=== PATIENT | female | born 1950 | race Caucasian/White ===

== ENCOUNTER → 2017-06-07 | Outpatient (CLI) | payer MEDICARE, MEDICAID ==
[~2017-06-07] MED LIST: ASPI-241 PO; ATEN100T88 PO; ATOR80TA PO; CLOP75TA PO; FURO40TA4 PO; ISM30TCR PO; KCL20TCR PO; LISI20TA PO; LOVA40TA2 PO; NITR4.1S2 PO; NITRO MT; NTR.6TD TD; TRIAMT/HCTZ PO; VERA120T6 PO
[2017-06-07 09:04] LABS: BILIRUBIN,TOTAL 0.9 MG/DL (0.1-1.0); CALCIUM 9.7 MG/DL (8.5-10.1); CREATININE SERUM 1.02 MG/DL (0.60-1.30); POTASSIUM 3.7 MMOL/L (3.6-5.0); TOTAL PROTEIN 7.3 GM/DL (6.4-8.2)
== END ==
LOC: LAB 08:28
PROVIDERS: ATTEND Internal Medicine Cardiovascular Disease
DX: E78.2 Mixed hyperlipidemia (principal); R00.2 Palpitations; R07.89 Other chest pain; R06.02 Shortness of breath
CPT/HCPCS: 36415; 80053; 80061

== ENCOUNTER → 2017-06-20 | Outpatient (CLI) | payer MEDICARE, MEDICAID | LOC: CARD 11:25 | PROVIDERS: ATTEND Internal Medicine Cardiovascular Disease | DX: R07.89 Other chest pain (principal); E78.2 Mixed hyperlipidemia; R00.2 Palpitations; R06.02 Shortness of breath | CPT/HCPCS: 93306 ==

== ENCOUNTER → 2017-06-27 | Outpatient (CLI) | payer MEDICARE, MEDICAID ==
[~2017-06-27] VITALS: Ht 157.5 cm; Wt 85.3 kg
[~2017-06-27] MED LIST changes: +CATHETER FLUSH 10 ML SYR IV SCH
--- NOTE | 2017-06-27 14:20 | STRESS TEST ---
DATE OF SERVICE: 06/27/2017 REFERRING PHYSICIAN: Dr. Cerrato. Baseline heart rate is 84, baseline blood pressure 127/86. Baseline EKG is sinus rhythm with no ischemic changes. In summary, the patient was injected with 10.48 mCi of technetium-99 Myoview and the resting images were obtained. Then, the patient started exercising with a baseline heart rate, blood pressure and EKG mentioned above. The patient was able to exercise for 3 minutes on standard Geraldo protocol. With peak exercise level, EKG was showing minimal nondiagnostic changes. Blood pressure was 130/90. During recovery, heart rate and blood pressure returned to baseline. EKG returned to baseline. The resting and stress images were reviewed and compared in the short axis, horizontal long axis, and vertical long axis views. Review of the images showed good radiotracer uptake with no significant ischemia or infarction. SSS is 3, SDS 3, TID value 1.0. On the gated images, the left ventricle appeared to be normal size with normal contractility. Calculated ejection fraction is 74%. CONCLUSION: 1. Poor exercise tolerance, a total of 3 minutes on standard Geraldo protocol, total of 4.6 METS achieving 89% of maximum expected heart rate. 2. Mild hypertensive response to exercise returned to baseline during recovery. 3. Minimal nondiagnostic EKG changes with exercise returned to baseline during recovery. 4. No ischemia or infarction on SPECT images. 5. Normal left ventricular size with normal contractility. Calculated ejection fraction is 74%. Job ID: [id number] DocumentID: [id number] Dictated Date: 06/27/2017 14:00:58 Telecasting Engineer Date: 06/27/2017 14:19:21 Dictated By: FATOU HURST MD
== END ==
LOC: CARD 06:42
PROVIDERS: ATTEND Internal Medicine Cardiovascular Disease
DX: R07.89 Other chest pain (principal); E78.2 Mixed hyperlipidemia; R00.2 Palpitations; R06.02 Shortness of breath
CPT/HCPCS: 78452; 93017

== ENCOUNTER → 2017-08-08 | Outpatient (CLI) | payer MEDICARE, MEDICAID ==
[~2017-08-08] MED LIST changes: -CATHETER FLUSH 10 ML SYR IV SCH; +RT-ALBUTEROL SULF 2.5 MG/3 ML PRE-MIX VIAL INH ONE
--- NOTE | 2017-08-08 11:30 | Diagnostic Imaging Report ---
INDICATION: Increasing shortness of breath. Time of exam 11:06 AM Comparison is made with prior chest from 02/11/2014. The heart size is normal. Right hemidiaphragm is chronically elevated. No infiltrates are detected. Pulmonary vascularity is normal. No effusion or pneumothorax is seen. IMPRESSION: No acute cardiopulmonary process is detected. Dictated by: Dictated on workstation # [id number]
== END ==
LOC: RT 10:35
PROVIDERS: ATTEND Internal Medicine
DX: R06.00 Dyspnea, unspecified (principal)
CPT/HCPCS: 71046; 94060; 94726; 94729

== ENCOUNTER → 2017-09-14 | Outpatient (CLI) | payer MEDICARE, MEDICAID ==
[~2017-09-14] MED LIST changes: -RT-ALBUTEROL SULF 2.5 MG/3 ML PRE-MIX VIAL INH ONE
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
== END ==
LOC: RAD 09:17
PROVIDERS: ATTEND Physician Assistant
DX: M47.816 Spondylosis without myelopathy or radiculopathy, lumbar region (principal); V89.2XXD Person injured in unspecified motor-vehicle accident, traffic, subsequent encounter
CPT/HCPCS: 72148

== ENCOUNTER → 2017-10-17 | Outpatient (CLI) | payer MEDICARE, MEDICAID ==
[2017-10-17 07:55] LABS: ALANINE AMINOTRANSFERASE 11 U/L (0-55); ALBUMIN 3.8 GM/DL (3.2-4.5); ALKALINE PHOSPHATASE 89 U/L (40-136); BILIRUBIN,TOTAL 0.9 MG/DL (0.1-1.0); BUN/CREATININE RATIO 18; CALCIUM 9.5 MG/DL (8.5-10.1); CARBON DIOXIDE 19 MMOL/L (21-32); CHLORIDE 112 MMOL/L (98-107); CHOLESTEROL 192 MG/DL (< 200); CREATININE SERUM 0.88 MG/DL (0.60-1.30); GFR ESTIMATED > 60; GLUCOSE 100 MG/DL (70-105); HDL CHOLESTEROL 55 MG/DL (40-60); POTASSIUM 3.9 MMOL/L (3.6-5.0); SODIUM 142 MMOL/L (135-145); TOTAL PROTEIN 6.6 GM/DL (6.4-8.2); TRIGLYCERIDES 118 MG/DL (<150); VLDL CHOLESTEROL 24 MG/DL (5-40)
== END ==
LOC: LAB 07:20
PROVIDERS: ATTEND Physician Assistant
DX: I25.10 Atherosclerotic heart disease of native coronary artery without angina pectoris (principal); R07.9 Chest pain, unspecified; R00.2 Palpitations
CPT/HCPCS: 36415; 80053; 80061

== ENCOUNTER → 2017-10-22 | Outpatient (CLI) | payer MEDICARE, MEDICAID ==
--- NOTE | 2017-10-22 09:48 | Diagnostic Imaging Report ---
PROCEDURE: CT sinuses without contrast TECHNIQUE: Multiple contiguous axial images were obtained through the sinuses without the use of intravenous contrast. Coronal and sagittal reformations were then performed. INDICATION: Recurrent sinusitis. COMPARISON: None. FINDINGS: Mild mucosal thickening in the floor of the maxillary sinuses. The paranasal sinuses are otherwise clear. The ostiomeatal units and frontal recesses are patent. Moderate rightward bowing of the nasal septum. No large melva bullosa. The mastoids and middle ears are clear. Moderate degenerative changes in the temporomandibular joints. No large periapical lucencies about the maxillary dentition. IMPRESSION: Mild mucosal thickening in the floor of the maxillary sinuses. The paranasal sinuses are otherwise clear. No air-fluid levels. Dictated by: Dictated on workstation # [id number]
== END ==
LOC: RAD 09:08
PROVIDERS: ATTEND Internal Medicine
DX: J32.9 Chronic sinusitis, unspecified (principal); J34.89 Other specified disorders of nose and nasal sinuses
CPT/HCPCS: 70486

== ENCOUNTER 2017-12-28 13:39 | Emergency (ER) | payer MEDICARE, MEDICAID ==
[~2017-12-28] VITALS: Ht 157.5 cm; Wt 85.3 kg
--- OUTSIDE RECORDS SUMMARY | 2017-12-28 13:43 | XMS REPORT ---
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 Unknown Non Drug Allergy May, Unknown SOCIAL HISTORY No smoking Hx information available PLAN OF CARE VITAL SIGNS Blood pressure systolic 137 mmHg 2016-05-31 Blood pressure diastolic 97 mmHg 2016-05-31 MEDICATIONS Medication Instructions Dosage Frequency Start Date End Date Duration Status Ranexa 500 MG Orally Twice a day 1 tablet 12h Active Lasix 40 MG Orally Once a day 1 tablet 24h Active Potassium 1 tab Active Aspirin 325 MG Orally Once a day 1 tablet 24h Active Lovastatin 40 MG Orally Once a day 1 tablet with a meal 24h Active Atenolol 100 MG Orally Once a day 1 tablet 24h Active RESULTS No Results PROCEDURES Procedure Date Ordered Related Diagnosis Body Site LTD ORAL EVALUATION - PROBLEM FOCUS May 31, 2016 INTRAORL-PERIAPICAL 1 FILM [id number] May 31, 2016 IMMUNIZATIONS No Known Immunizations
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
--- NOTE | 2017-12-28 14:23 | ED Upper Extremity ---
General Chief Complaint: Trauma-Non Activation Stated Complaint: FALL/RT SHOULDER PAIN Nursing Triage Note: PT STATES SHE WAS WALKING AT [facility] AND FELL, CC OF RT UPPER ARM AND SHOULDER PAIN WITH NUMBNESS OF FINGERS. PT DOES NOT KNOW WHY SHE FELL, DENIES PASSING OUT AND DOES NOT KNOW OF ANYTHING ON THE FLOOR. Nursing Sepsis Screen: No Definite Risk Source: patient, family Exam Limitations: no limitations History of Present Illness Date Seen by Provider: Dec 28, 2017 Time Seen by Provider: 14:20 Initial Comments Patient is a 67-year-old female who presents to the emergency room after a fall at [facility] today onto her right upper arm. She complains of right shoulder and right humerus with numbness and tingling that radiates to her fingers. She denies passing out, denies hitting her head, denies loss of consciousness, denies neck pain. She thinks she got her feet caught up and tripped. Location Injury Occurred: [facility] Onset: just prior to arrival Pain/Injury Location: right shoulder, right arm Method of Injury: fell Modifying Factors: Improves With Movement Allergies and Home Medications Allergies Coded Allergies: Erythromycin Base (Verified Allergy, Unknown, 12/29/05) Meperidine (Verified Allergy, Unknown, 12/29/05) Home Medications Aspirin 325 Mg Tablet.dr, 325 MG PO DAILY, (Reported) Atenolol 100 Mg Tablet, 100 MG PO DAILY, (Reported) Furosemide 40 Mg Tablet, 40 MG PO DAILY, (Reported) Isosorbide Mononitrate 30 Mg Tab, 30 MG PO DAILY Prescribed by: DARNELL CERRATO on 02/12/14 0851 Lovastatin 40 Mg Tablet, 1 EACH PO DAILY WITH SUPPER Prescribed by: DARNELL CERRATO on 02/12/14 0851 Nitroglycerin 4.1 Gm [place], 1 SPRAY PO Q15M PRN for CHEST PAIN, (Reported) Potassium Chloride 20 Meq Tab, 20 MEQ PO DAILY, (Reported) Patient Home Medication List Home Medication List Reviewed: Yes Constitutional: see HPI; No chills, No fever Musculoskeletal: see HPI, joint pain (right shoulder and right upper arm pain) All Other Systems Reviewed Negative Unless Noted: Yes Past Tnyewps-Gclnje-Mmgond Hx Past Med/Social Hx: Reviewed Nursing Past Med/Soc Hx Patient Social History Alcohol Use: Denies Use Recreational Drug Use: No Smoking Status: Never a Smoker Recent Foreign Travel: No Contact w/Someone Who Travel: No Recent Infectious Disease Expo: No Recent Hopitalizations: No Immunizations Up To Date Tetanus Booster (TDap): More than 5yrs Seasonal Allergies Seasonal Allergies: Yes Past Medical History Surgeries: Yes Appendectomy, Section, Gallbladder, Tonsillectomy Respiratory: No Cardiac: Yes (STENTS IN HEART) Coronary Artery Disease, Hypertension Neurological: No Reproductive Disorders: No Genitourinary: No Gastrointestinal: No Musculoskeletal: No Endocrine: No Loss of Vision: Denies Hearing Impairment: Denies Cancer: No Psychosocial: No Integumentary: No Blood Disorders: No Adverse Reaction/Blood Tranf: No Family Medical History Reviewed Nursing Family Hx Completed stroke 19 MOTHER G8 BROTHER Diabetes mellitus 19 MOTHER Hypertension 19 MOTHER Myocardial infarction 19 FATHER 19 MOTHER G8 BROTHER Physical Exam Vital Signs Vital Signs - First Documented 12/28/17 13:58 Temp 97.7 Pulse 80 Resp 20 B/P (MAP) 142/80 (100) Pulse Ox 96 O2 Delivery Room Air Capillary Refill : Less Than 3 Seconds Height, Weight, BMI Height: 5'2.00" Weight: 188lbs. 0.0oz. 85.250636jq; 34.4 BMI Method:Stated General Appearance: WD/WN, no apparent distress Neck: non-tender, full range of motion, supple, normal inspection Cardiovascular: regular rate, rhythm, no edema, no gallop, no JVD, no murmur Respiratory: chest non-tender, lungs clear, normal breath sounds, no respiratory distress, no accessory muscle use Shoulder: normal inspection, no evidence of injury, normal ROM; No ecchymosis; limited ROM Elbow/Forearm: normal inspection, non-tender, no evidence of injury (no abrasion, no ecchymosis on the right arm. ), normal ROM Neurologic/Tendon: normal sensation, normal motor functions, normal tendon functions, responds to pain Neurologic/Psychiatric: alert, normal mood/affect, oriented x 3 Progress/Results/Core Measures Results/Orders My Orders Vital Signs/I&O Blood Pressure Mean: 100 Progress Progress Note : Progress Note I have seen and evaluated the patient. I have informed her of normal imaging studies. She has been provided a sling for comfort. She agrees with plans of discharge, plan of care, close follow up with PCP, and return precautions. Diagnostic Imaging Diagonstic Imaging: Xray Plain Films/CT/US/NM/MRI: forearm Comments [facility] [id number] PT STATUS: REG ER : 1950 PHYSICIAN: BRENDA DYER ADMIT DATE: 12/28/17/ER Signed Date of Exam: 12/28/17 HUMERUS, RIGHT, 2 VIEWS INDICATION: Fall with right arm pain. Time of exam 2:48 PM Alignment at the shoulder and elbow appears normal. The humerus is intact. No fractures are seen. IMPRESSION: No acute bony abnormality is detected. Dictated by: Dictated on workstation # [id number] Dict: 12/28/17 1449 Trans: 12/28/171511 Interpreted by: VICTOR MANUEL ESQUIVEL MD Electronically signed by: VICTOR MANUEL ESQUIVEL MD 12/28/171511 [facility] [id number] PT STATUS: REG ER : 1950 PHYSICIAN: BRENDA DYER ADMIT DATE: 12/28/17/ER Signed Date of Exam: 12/28/17 SHOULDER, RIGHT, 3 VIEWS INDICATION: Fall with right arm pain. Time of exam 2:51 PM 3 views of the right shoulder were obtained. Glenohumeral and acromioclavicular alignment are normal. Acromiohumeral space is normal. No fracture or dislocation is seen. IMPRESSION: No acute abnormality is detected. Dictated by: Dictated on workstation # [id number] Dict: 12/28/17 1448 Trans: 12/28/171510 Interpreted by: VICTOR MANUEL ESQUIVEL MD Electronically signed by: VICTOR MANUEL ESQUIVEL MD 12/28/171510 Reviewed: Reviewed by Me Departure Impression Primary Impression: Fall Qualified Codes: W19.XXXA - Unspecified fall, initial encounter Additional Impression: Contusion, shoulder /upper arm Disposition: 01 HOME, SELF-CARE Condition: Stable/Unchanged Departure-Patient Inst. Decision time for Depature: 14:58 Referrals: DARNELL CERRATO DO (PCP/Family) Primary Care Physician Add. Discharge Instructions: Keep your appointment with Dr. Cerrato as scheduled on Sunday12/31/17. You may use ibuprofen and Tylenol as directed by the bottle. Ice to sore areas at 20 minute intervals. Return back to the emergency room for any worsening symptoms or concerns as needed. Wear the sling as needed for comfort. All discharge instructions reviewed with patient and/or family. Voiced understanding. BRENDA DYER Dec 28, 2017 14:23
--- NOTE | 2017-12-28 14:51 | Diagnostic Imaging Report ---
INDICATION: Fall with right arm pain. Time of exam 2:51 PM 3 views of the right shoulder were obtained. Glenohumeral and acromioclavicular alignment are normal. Acromiohumeral space is normal. No fracture or dislocation is seen. IMPRESSION: No acute abnormality is detected. Dictated by: Dictated on workstation # [id number]
--- NOTE | 2017-12-28 14:52 | Diagnostic Imaging Report ---
INDICATION: Fall with right arm pain. Time of exam 2:48 PM Alignment at the shoulder and elbow appears normal. The humerus is intact. No fractures are seen. IMPRESSION: No acute bony abnormality is detected. Dictated by: Dictated on workstation # [id number]
[2017-12-28 15:15] VITALS: BP 142/80
== END 2017-12-28 15:15 | disposition home or self-care (01) ==
LOC: EDUNIT# 13:39 → ER 13:40
DX: S40.011A Contusion of right shoulder, initial encounter (principal); I25.10 Atherosclerotic heart disease of native coronary artery without angina pectoris; I10 Essential (primary) hypertension; Z82.49 Family history of ischemic heart disease and other diseases of the circulatory system; Z95.5 Presence of coronary angioplasty implant and graft; Z88.0 Allergy status to penicillin; Z88.8 Allergy status to other drugs, medicaments and biological substances; Z79.82 Long term (current) use of aspirin; Z90.89 Acquired absence of other organs; Z87.59 Personal history of other complications of pregnancy, childbirth and the puerperium; W18.30XA Fall on same level, unspecified, initial encounter; Y92.59 Other trade areas as the place of occurrence of the external cause
CPT/HCPCS: 73030; 73060

== ENCOUNTER → 2018-01-03 | Outpatient (CLI) | payer MEDICARE, MEDICAID ==
--- NOTE | 2018-01-03 09:56 | Diagnostic Imaging Report ---
EXAMINATION: Magnetic resonance imaging of the right shoulder without contrast. DATE: January 03, 2018. COMPARISON: Right shoulder radiographs December 28, 2017. INDICATION: 67-year-old female, history of fall. Right shoulder pain. TECHNIQUE: Magnetic Resonance Imaging sequences were performed of the shoulder without contrast. FINDINGS: There are motion limitations of the exam. ROTATOR CUFF, LIGAMENTS, TENDONS, AND MUSCLES: There is a 13 mm wide full-thickness or very near full-thickness tear of the supraspinatus tendon with the tear measuring 10 mm in medial to lateral dimension as measured on coronal T2 fat saturation sequence image 10. There is tendinopathy of the remaining portions of supraspinatus. There is infraspinatus tendinopathy. The teres minor tendon is intact. There is subscapularis tendinopathy with probable interstitial split tear of the subscapularis tendon. There is normal rotator cuff muscle bulk and signal. LONG HEAD OF BICEPS: The long head of biceps tendon is not present within its intra-articular segment or identified within the bicipital groove. The long head of biceps tendon is likely torn and retracted below the level of the bicipital groove. GLENOHUMERAL JOINT: The humeral head is well positioned relative to the glenoid. The labrum is grossly intact. There is no identified paralabral cyst. The articular cartilage is grossly intact. There is a trace to small glenohumeral joint effusion. The inferior glenohumeral ligament complex is not well visualized with abnormal soft tissue edema subjacent to the axillary pouch. There is significant motion limitation for evaluation at this location; however, this does question the integrity of the inferior glenohumeral ligament complex. ACROMIOCLAVICULAR JOINT: The acromioclavicular joint is normally aligned. The coracoclavicular and coracoacromial ligaments are intact. There are mild acromioclavicular degenerative changes. The distal clavicle is mildly bulbous and projects approximately 3 mm below the joint margin. BONE: There is no os acromiale. There is mild degenerative related edema subjacent to the acromioclavicular joint. There is no large subcortical cyst within the superior humeral head underlying the site of the supraspinatus tendon tear. There is low level underlying edema like signal including at the bursal sided tendon attachment of subscapularis. There is no acute fracture. There is no evidence of osteonecrosis. BURSAE AND SOFT TISSUES: There is a small amount of fluid within the subacromial subdeltoid bursa which may relate to the rotator cuff tendon tear, bursitis, and/or recent injection. There is prominent soft tissue edema medial to the glenohumeral joint. IMPRESSION: 1. 13 mm wide full-thickness or near full-thickness tear of the supraspinatus tendon with the tear measuring 10 mm in medial to lateral dimension. Supraspinatus and infraspinatus tendinopathy. Subscapularis tendinopathy with probable interstitial split tear of the subscapularis tendon. 2. Torn and retracted long head of biceps tendon which is located below the level of the bicipital groove. 3. Mild acromioclavicular degenerative changes with somewhat bulbous lateral clavicle projecting 3 mm below joint margin. 4. No distinct labral tear or paralabral cyst. Lack of well visualized inferior glenohumeral ligament complex with subjacent prominent soft tissue edema. This does question the integrity of the inferior glenohumeral ligament complex. 5. No acute fracture. No evidence of osteonecrosis. Dictated by: Dictated on workstation # [id number]
== END ==
LOC: RAD 07:24
PROVIDERS: ATTEND Internal Medicine
DX: S46.811A Strain of other muscles, fascia and tendons at shoulder and upper arm level, right arm, initial encounter (principal); S46.211A Strain of muscle, fascia and tendon of other parts of biceps, right arm, initial encounter; M75.121 Complete rotator cuff tear or rupture of right shoulder, not specified as traumatic; M19.011 Primary osteoarthritis, right shoulder
CPT/HCPCS: 73221

== ENCOUNTER 2018-01-31 13:08 | Outpatient (CLI) | payer MEDICARE, MEDICAID ==
[~2018-01-31] VITALS: Ht 157.5 cm; Wt 83.6 kg
[2018-01-31] MEDS ORDERED: ASPI-808 PO (13:25)
[2018-01-31] MEDS ORDERED: POTA20TA15 PO (13:25)
[2018-01-31] MEDS ORDERED: METO50TA15 PO (13:25)
[2018-01-31] MEDS ORDERED: ROSU40TA PO (13:25)
[2018-01-31] MEDS ORDERED: FURO40TA4 PO (13:25)
[2018-01-31] MEDS ORDERED: RANO500T3 PO (13:25)
[2018-01-31] MEDS ORDERED: NITR0.4T42 SL (13:27)
[2018-01-31 13:31] VITALS: BP 130/87
[2018-01-31 14:23] LABS: CALCIUM 9.8 MG/DL (8.5-10.1); CREATININE SERUM 1.14 MG/DL (0.60-1.30); POTASSIUM 3.8 MMOL/L (3.6-5.0)
== END 2018-01-31 14:56 | disposition home or self-care (01) ==
LOC: PREOP 13:08
PROVIDERS: ATTEND Orthopaedic Surgery
DX: Z01.812 Encounter for preprocedural laboratory examination (principal); Z11.2 Encounter for screening for other bacterial diseases; S43.421A Sprain of right rotator cuff capsule, initial encounter; X58.XXXA Exposure to other specified factors, initial encounter
CPT/HCPCS: 36415; 80048; 87081

== ENCOUNTER 2018-02-06 07:24 | Day surgery (SDC) | payer MEDICARE, MEDICAID ==
--- NOTE | 2018-01-29 16:42 | HISTORY AND PHYSICAL ---
DATE OF SERVICE: 02/06/2018 ADMISSION HISTORY AND PHYSICAL For outpatient right shoulder arthroscopy. HISTORY OF PRESENT ILLNESS: The patient is a 68-year-old right hand dominant female with complaints of right shoulder pain. She fell on her right upper extremity approximately 4 weeks ago. She underwent an MRI, which showed a full thickness supraspinatus tear as well as long head of biceps tear. She reports no prior history of shoulder problems. She reports pain on the lateral aspect of her shoulder. She denies neck pain. She reports weakness and functional impairment. Due to this, the patient has elected to proceed with surgical intervention. REVIEW OF SYSTEMS: No chest pain. No shortness of breath. No dysuria. PAST MEDICAL HISTORY: Hypertension and also significant for coronary artery disease. PAST SURGICAL HISTORY: Coronary stent placement. FAMILY HISTORY: Significant for coronary artery disease. PRIMARY CARE PROVIDER: Dr. Cerrato. MEDICATIONS: Metoprolol, Lasix, aspirin, Ranexa, potassium. ALLERGIES: CODEINE, MORPHINE, VALIUM, TYLENOL, DEMEROL. SOCIAL HISTORY: The patient denies alcohol or tobacco use. PHYSICAL EXAMINATION: GENERAL: The patient is well developed, well-nourished, in no acute distress. HEENT: Normocephalic and atraumatic. Pupils are equal, round, and reactive to light. Oropharynx is clear. NECK: Supple. No lymphadenopathy. LUNGS: Clear to auscultation bilaterally. HEART: Regular rate and rhythm. ABDOMEN: Soft, nontender, nondistended. EXTREMITIES EXAM: The right shoulder demonstrates weakness with abduction and external rotation. She has active forward elevation of 90 degrees and guards beyond this. External rotation actively 70 degrees, internal rotation is to her buttocks. She is nontender at the acromioclavicular joint. IMPRESSION: Right shoulder rotator cuff tear. PLAN: Right shoulder arthroscopy with possible biceps tenotomy, acromioplasty and open rotator cuff repair. The risks, benefits, options, ramifications and recovery were discussed at length with the patient. She understands and wishes to proceed. Job ID: [id number] DocumentID: [id number] Dictated Date: 01/28/2018 11:22:23 Vamper Date: 01/28/2018 12:07:23 Dictated By: SHAKILA MALDONADO MD
[~2018-02-06] VITALS: Ht 157.5 cm; Wt 83.6 kg
[~2018-02-06 07:24] MED LIST changes: +ASPI-808 PO; +METO50TA15 PO; +NITR0.4T42 SL; +POTA20TA15 PO; +RANO500T3 PO; +ROSU40TA PO
[2018-02-06] MEDS ORDERED: BUPIVACAINE 0.25% 30 ML (SENSORCAINE) VIAL ONE (07:26)
[2018-02-06] MEDS ORDERED: morphine PF (DURAMORPH) 10 MG/10 ML AMP ONE (07:26)
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
[2018-02-06] MEDS ORDERED: ceFAZolin INJECTION 1,000 MG in NS (IVPB) 50 ML IV ONE (07:30)
[2018-02-06] MEDS ORDERED: oxyCODONE/APAP 5/325MG (PERCOCET 5) TABLET PO PRN (07:30)
[2018-02-06 07:35] VITALS: BP 129/94
[2018-02-06] MEDS: LACTATED RINGERS 1,000 ML IV PRN ×2 (07:45→09:57)
[2018-02-06] MEDS ORDERED: MIDAZOLAM 2 MG/2 ML (VERSED) VIAL ONE ×2 (08:14)
[2018-02-06] MEDS ORDERED: ONDANSETRON 4 MG/2 ML (SDV) Z0FRAN IV ONE (08:15)
[2018-02-06] MEDS ORDERED: FAMOTIDINE 20MG/2ML IV (PEPCID) IV ONE (08:15)
[2018-02-06] MEDS ORDERED: SCOPOLAMINE 1.5 MG (TRANSDERM-SCOP) PATCH TOP ONE (08:15)
[2018-02-06] MEDS ORDERED: ROPIVACAINE 5MG/ML 30ML VIAL ONE (09:02)
[2018-02-06] MEDS ORDERED: fentaNYL INJECTION 100 MCG/2 ML AMP ONE (09:02)
--- NOTE | 2018-02-06 09:06 | Progress Note-Pre Operative ---
Pre-Operative Progress Note H&P Reviewed The H&P was reviewed, patient examined and no changes noted. Date Seen by Provider: Feb 06, 2018 Time Seen by Provider: 09:05 Date H&P Reviewed: Feb 06, 2018 Time H&P Reviewed: 09:05 Pre-Operative Diagnosis: right rotator cuff sprain, SLAP tear SHAKILA MALDONADO MD Feb 06, 2018 09:06
--- NOTE | 2018-02-06 09:09 | Progress Note-Post Operative ---
Post-Operative Progess Note Surgeon (s)/Skein Bleacher (s) Surgeon SHAKILA MALDONADO MD Skein Bleacher: Sofie Ling Pre-Operative Diagnosis right rotator cuff sprain, SLAP tear Post-Operative Diagnosis right rotator cuff tear Procedure & Operative Findings Date of Procedure 02/06/18 Procedure Performed/Findings right shoulder arthroscopic acromioplasty,open rotator cuff repair Anesthesia Type GETA plus interscalene block Estimated Blood Loss Estimated blood loss (mL): minimal Specimens/Packing Specimens Removed none Packing: none SHAKILA MALDONADO MD Feb 06, 2018 09:09
[2018-02-06] MEDS ORDERED: LIDOCAINE PF 2% 2 ML (XYLOCAINE) VIAL ONE (09:36)
[2018-02-06] MEDS ORDERED: DEXAMETHASONE 10 MG/ML (DECADRON) 1 ML VIAL ONE (09:36)
[2018-02-06] MEDS ORDERED: proPOfol 200 MG/20 ML (DIPRIVAN) VIAL IV ONE (09:36)
[2018-02-06] MEDS ORDERED: ONDANSETRON 4 MG/2 ML (SDV) Z0FRAN ONE (09:36)
[2018-02-06] MEDS ORDERED: ROCURONIUM 10 MG/ML 5 ML SYRINGE IV ONE (09:36)
[2018-02-06] MEDS ORDERED: SEVOFLURANE (ULTANE) 15 ML INHAL SOLN ONE (09:47)
[2018-02-06] MEDS ORDERED: GLYCOPYRROLATE 0.2 MG/ML (ROBINUL) 2 ML VIAL ONE (09:53)
[2018-02-06] MEDS ORDERED: NEOSTIGMINE 1 MG/ML 5 ML SYRINGE ONE (09:53)
[2018-02-06] MEDS ORDERED: fentaNYL INJECTION 100 MCG/2 ML AMP IVP ONE (10:30)
[2018-02-06 11:15] VITALS: BP 129/83
[2018-02-06] MEDS ORDERED: OXYC1TAB87 PO (11:42)
[2018-02-06 11:45] VITALS: BP 120/73
--- NOTE | 2018-02-06 12:06 | OPERATIVE REPORT ---
DATE OF SERVICE: 02/06/2018 PREOPERATIVE DIAGNOSIS: 1. Right shoulder rotator cuff tear. 2. Right shoulder SLAP tear. POSTOPERATIVE DIAGNOSIS: Right shoulder rotator cuff tear. PROCEDURE: 1. Right shoulder open rotator cuff repair. 2. Right shoulder arthroscopic acromioplasty. SURGEON: Sabino Maldonado MD. HEALTH PHYSICS TECHNICIAN: QUINTIN Chino, who assisted throughout the procedure and closed the incisions. ANESTHESIA: General endotracheal plus interscalene nerve block as per my request for postoperative pain management by Kelley Osborn CRNA. ESTIMATED BLOOD LOSS: Minimal. DRAINS: None. COMPLICATIONS: None. POSTOPERATIVE PLAN: Sling and passive range of motion for 4 weeks. The patient was transferred to the recovery room awake and in stable condition. STATEMENT OF MEDICAL NECESSITY: The patient is a 68-year-old right hand dominant female with complaints of right shoulder pain and weakness. She had a positive Neer's and positive Hawkin sign. Weakness with abduction and external rotation. An MRI confirmed a full thickness supraspinatus tear and due to functional impairment and failure to improve with conservative treatment, the patient elected to proceed with surgical intervention. Examination under anesthesia forward elevation of 170 degrees, external rotation 85 degrees, internal rotation of 70 degrees. Arthroscopic findings demonstrated an absent biceps anchor. No labral pathology was noted. No glenoid or humeral head articular wear was noted. There was a full thickness supraspinatus tear anteriorly without retraction. Subacromial space demonstrated moderate bursitis with a slight slope in the anterolateral acromion. PROCEDURE: After risks and benefits of procedure were discussed and questions were answered, an informed consent was signed and placed on the chart. The operative site was confirmed in the preoperative holding unit by the surgeon. The patient was then transported to the operating room. After adequate level of general endotracheal anesthetic were obtained, a timeout was called confirming the operative site. The right shoulder and upper extremity were prepped and draped in the usual sterile fashion. Shoulder joint was injected with 30 mL of fluid. A standard posterior portal was placed. A diagnostic arthroscopy was carried out and a spinal needle was used as a probe anteriorly. The scope was then redirected into the subacromial space and a lateral portal was created. A bursectomy was performed and the acromion was planed to a flat type 1 acromion. The lateral portal was then extended. The deltoid was split in line with its fibers leaving attached to the acromion. The rotator cuff tear was mobilized and easily brought to its insertion site. A bleeding bony bed was prepared and a single corkscrew anchor was placed. A modified Mike -- Mikel repair was performed with an excellent repair obtained. No undue tension was noted at the operative site. The wound was copiously irrigated. The deltoid was repaired in a [id number] fashion using #2 FiberWire in [id number] interrupted fashion. The wound was further irrigated. A 2-0 Vicryl was used to reapproximate subcutaneous tissue and skin was closed with 4-0 nylon in a running alternating horizontal mattress fashion. The posterior portal was closed with 4-0 nylon in a simple interrupted fashion. The incisions were infiltrated with plain Marcaine. A soft dressing and sling were applied and the patient was transferred to the recovery room awake and in stable condition. Job ID: [id number] DocumentID: [id number] Dictated Date: 02/06/2018 10:10:12 Commercial Intern Date: 02/06/2018 12:05:49 Dictated By: SABINO MALDONADO MD
[2018-02-06 12:15] VITALS: BP 119/72
[2018-02-06 12:30] VITALS: BP 119/72
--- NOTE | 2018-02-06 15:01 | Anesthesia-General Post-Op ---
General Patient Condition Mental Status/LOC: Same as Preop Cardiovascular: Satisfactory Nausea/Vomiting: Absent Respiratory: Satisfactory Pain: Controlled Complications: Absent Post Op Complications Complications None Follow Up Care/Instructions Patient Instructions None needed. Anesthesia/Patient Condition Patient Condition Patient was seen after the procedure and she was doing well, no complaints, stable vital signs, no apparent adverse anesthesia problems. She was not complaining of any shoulder pain. JÚNIOR BERMUDEZ DO Feb 06, 2018 15:01
== END 2018-02-06 12:30 | disposition home or self-care (01) ==
LOC: SDC 07:24
PROVIDERS: ATTEND Orthopaedic Surgery
DX: M75.101 Unspecified rotator cuff tear or rupture of right shoulder, not specified as traumatic (principal); S43.431A Superior glenoid labrum lesion of right shoulder, initial encounter; W19.XXXA Unspecified fall, initial encounter; I25.10 Atherosclerotic heart disease of native coronary artery without angina pectoris; I10 Essential (primary) hypertension; E78.5 Hyperlipidemia, unspecified; R07.9 Chest pain, unspecified; R06.00 Dyspnea, unspecified; R55 Syncope and collapse; Z95.5 Presence of coronary angioplasty implant and graft; Z79.899 Other long term (current) drug therapy

== ENCOUNTER → 2018-04-08 | Outpatient (CLI) | payer MEDICARE, MEDICAID ==
[~2018-04-08] MED LIST changes: +OXYC1TAB87 PO
== END ==
LOC: LAB 07:49
PROVIDERS: ATTEND Orthopaedic Surgery
DX: Z01.812 Encounter for preprocedural laboratory examination (principal); G56.01 Carpal tunnel syndrome, right upper limb
CPT/HCPCS: 36415; 84132

== ENCOUNTER → 2018-06-05 | Outpatient (CLI) | payer MEDICARE, MEDICAID ==
[2018-06-05 09:07] LABS: ALANINE AMINOTRANSFERASE 11 U/L (0-55); ALBUMIN 3.9 GM/DL (3.2-4.5); ALKALINE PHOSPHATASE 117 U/L (40-136); BILIRUBIN,TOTAL 0.6 MG/DL (0.1-1.0); BUN/CREATININE RATIO 19; CALCIUM 9.9 MG/DL (8.5-10.1); CARBON DIOXIDE 19 MMOL/L (21-32); CHLORIDE 108 MMOL/L (98-107); CHOLESTEROL 199 MG/DL (< 200); CREATININE SERUM 0.85 MG/DL (0.60-1.30); GFR ESTIMATED > 60; GLUCOSE 101 MG/DL (70-105); HDL CHOLESTEROL 55 MG/DL (40-60); SODIUM 139 MMOL/L (135-145); TOTAL PROTEIN 6.9 GM/DL (6.4-8.2); TRIGLYCERIDES 131 MG/DL (<150); VLDL CHOLESTEROL 26 MG/DL (5-40)
== END ==
LOC: LAB 08:31
PROVIDERS: ATTEND Internal Medicine Cardiovascular Disease
DX: E78.2 Mixed hyperlipidemia (principal); R07.89 Other chest pain; I25.10 Atherosclerotic heart disease of native coronary artery without angina pectoris; R06.09 Other forms of dyspnea
CPT/HCPCS: 36415; 80053; 80061